=== PATIENT | male | born 1950 | race Caucasian/White ===

== ENCOUNTER 2016-12-08 20:16 | Inpatient (IN) | payer OTHER ==
[~2016-12-08] VITALS: Ht 175.3 cm; Wt 123.2 kg
--- NOTE | ~2016-12-08 | HC ---
[facility] [place] [address] CONSULTATION Name: BIN CLARKE Room #: 442-P [facility] IN ..#: [id number] Admission: 12/08/16 Attend Phys: Mohit Machuca MD Discharge: 12/13/16 Date of : 48 Report #: [id number] THIS REPORT FOR: //name// CC: Mohit BO DATE OF SERVICE: 12/09/2016 REASON FOR CONSULTATION: Congestive heart failure. HISTORY OF PRESENT ILLNESS: This is a very pleasant gentleman with a prior history of congestive heart failure, but having normalized left ventricular ejection fraction, who presented with increasing shortness of breath. The patient states that the discomfort was only a few days' duration, but upon further questioning, he had been having some gradual worsening of the symptomatology over a week or so. Over the last 3 days, he became more acutely short of breath. He stated that this was to the point where we could not breath very well and sought medical attention. He noticed is that his home O2 monitor demonstrated O2 sats in the 70s. Upon further questioning, he is not having any palpitations, any syncope or near syncope. No fever, chills or night sweats. PAST MEDICAL HISTORY: Significant for: 1. Coronary artery disease, with subsequent percutaneous revascularization. 2. Peripheral vascular disease. 3. Hypertension. 4. Vwl-ppqqwyt-cadparsfs diabetes mellitus. 5. Dyslipidemia. ALLERGIES: No known drug allergies. PAST SURGICAL HISTORY: Significant for: 1. Aortofemoral bypass grafting in 1988. 2. Intracoronary stents in 2002. 3. Bilateral carotid endarterectomies in 2007. 4. Colonoscopies. REVIEW OF SYSTEMS: Except for symptoms previously mentioned and those commensurate with comorbid states, the 10-point review of system is negative. MEDICATIONS: At home were meloxicam, glyburide, potassium chloride, prednisone, Crestor, Coreg, Lasix, aspirin, Norvasc, omeprazole, Flomax, vitamin D, Proscar, probiotic, iron, AccuNeb, sublingual nitroglycerin p.r.n. and ProAir. SOCIAL HISTORY: The patient is a former smoker. He does not consume alcohol. He does not follow a particular exercise regimen or dietary restriction. [address] [address] CONSULTATION Name: BIN CLARKE Room #: 442-P [facility] IN [facility].#: [id number] Admission: 12/08/16 Attend Phys: Mohit Machuca MD Discharge: 12/13/16 Date of : 48 Report #: [id number] PHYSICAL EXAMINATION: GENERAL: A well-developed white male, resting comfortably in no distress. VITAL SIGNS: Noted and recorded in the chart. HEENT: Normocephalic, atraumatic. Pupils are equal, round, reactive to light and accommodation. Extraocular muscles are intact. Sclerae and conjunctivae are anicteric. NECK: JVD is normal. Carotid upstrokes are bilaterally symmetrical. No bruits are heard. No thyromegaly. No lymphadenopathy. LUNGS: End-expiratory wheezes are noted bilaterally in the lungs, with bibasilar crackles present. CARDIAC EXAMINATION: Demonstrates a regular rhythm. Soft systolic murmur. No diastolic murmurs are noted. ABDOMEN: Soft, nontender, nondistended. Normal bowel sounds. EXTREMITIES: Without cyanosis, clubbing or edema. Distal pulses are intact. DTR symmetrical. NEUROLOGIC: Cranial nerves 2-12 are grossly normal and symmetrical. PSYCHIATRIC: Alert, oriented with normal affect. SKIN: Warm and dry. IMPRESSION: 1. Congestive heart failure, much improved today after diuresis, but still requires some more as he does have some orthopnea. In view of this, we will continue as we are doing. His LV function previously had been normalized and I will continue his current regimen. 2. Hypertension. We will need to monitor and make sure that was not one of the causes of his blood pressure and make sure that is at target. 3. Dyslipidemia. I discussed [place] [employer] step-1 diet with him. He voices understanding and I will get him the handout so that he can incorporate that in his daily dietary habits. 4. Peripheral vascular disease, stable. Not an issue at the present time. <ELECTRONICALLY SIGNED> By: Lance Ayala MD 12/15/16 1721 47 1158 Lance Ayala MD /nt
--- NOTE | ~2016-12-08 | EKG ---
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 : 1950 Requested By: Zane Rain Order Number: [id number] MD: Milad Payne Measurements Intervals [place] Rate: 64 P: 39 WA: 255 QRS: 26 QRSD: 150 T: 53 QT: 454 QTc: 469 Interpretive Statements Sinus rhythm Prolonged WA interval Right bundle branch block Baseline wander in lead(s) V5 Compared to ECG 09/19/2016 21:02:33 Atrial premature complex(es) no longer present Electronically Signed On 12-10-2016 9:01:27 CDT by Milad Payne [email or web address] <ELECTRONICALLY SIGNED> By: Milad Payne MD, [facility] 12/10/16 0901 26 26 Milad Payne MD, [facility] /EPI
--- NOTE | ~2016-12-08 | H ---
[facility] [place] [address] HISTORY AND PHYSICAL Name: BIN CLARKE Room #: 442-P ADM IN M.R.#: [id number] Admission: 12/08/16 Attend Phys: Mohit Machuca MD Discharge: Date of : 48 Report #: [id number] THIS REPORT FOR: //name// CC: Mohit BO DATE OF SERVICE: 12/09/2016 DATE OF ADMISSION: 12/08/2016 DATE OF SERVICE: 12/09/2016 ATTENDING PHYSICIAN: Pia Ramirez M.D. PRIMARY CARE PHYSICIAN: CAROL CHIEF COMPLAINT: Shortness of air and low oxygen saturation. HISTORY OF PRESENT ILLNESS: The patient is a 66-year-old male, who has been noticing pain, shortness of air over the last few days. He does have a history of COPD as well as CHF. He does check his oxygen on a pulse oximeter at home and it was noted to be in a 70s. He has tried some breathing treatments at home, but they did not help. He denies any significant edema or orthopnea. He has noticed a weight gain of may be, he thinks 25 pounds in the last 3 weeks. He does take Lasix daily. He says he has not missed any doses. He says he does watch his salt intake. He was previously here in June of last year for heart failure and had an echo done, which showed an EF of 55-60%. Since that time, he has been started on Coumadin. He really does not know why. He denies any DVT or PE. Denies any irregular heart rhythm. He did have a fall a few days ago in which he hit the top part of his abdomen across the back of a chair and has noticed some bruising there, but he denies any increasing abdominal distention. PAST MEDICAL HISTORY: COPD, congestive heart failure with last known EF of 55-60%, hypertension, diabetes, anemia, hyperlipidemia, coronary artery disease, chronic kidney disease stage 3, BPH, PVD. PAST SURGICAL HISTORY: Left inguinal hernia repair, CABG x 2 vessels, coronary stent x 2, bilateral carotid endarterectomy, left lower extremity stents with angioplasty, TURP, aortofemoral bypass BiPAP. ALLERGIES: None. HOME MEDICATIONS: Albuterol inhaler p.r.n., Flomax 0.4 mg at bedtime, iron 325 mg t.i.d., Imdur 30 mg daily, nitro p.r.n., carvedilol 25 mg b.i.d., amlodipine 5 mg daily, aspirin, 325 mg daily, Mobic 15 mg daily, paroxetine 60 mg at bedtime, potassium 40 mEq daily, Lasix 40 mg in the evening and 80 mg in the [address] [address] HISTORY AND PHYSICAL Name: BIN CLARKE Room #: 442-P [facility] IN M.R.#: [id number] Admission: 12/08/16 Attend Phys: Mohit Machuca MD Discharge: Date of : 48 Report #: [id number] morning, omeprazole 20 mg daily, glyburide 7.5 mg daily, vitamin D b.i.d. and finasteride 5 mg daily. SOCIAL HISTORY: The patient is an ex-smoker, having quit smoking 9 years ago. Denies any alcohol or drug use. He ambulates with a cane. He says he lives retired and currently lives with his son. FAMILY HISTORY: Significant for heart disease in his father, who from an [place] at the age of 61, his mother had hypertension, PVD with abdominal aortic aneurysm. REVIEW OF SYSTEMS: Twelve point review of systems was reviewed with the patient, otherwise negative unless stated in the HPI. PHYSICAL EXAMINATION: VITAL SIGNS: Temperature is 36.7, heart rate 69, respirations 12, blood pressure is 113/66, oxygen 90% on room air, actually on 2 liters. HEENT: PERRLA. Sclerae are nonicteric. Oral mucosa is pink and moist. NECK: Supple. No JVD noted. CARDIOVASCULAR: Normal S1, S2. No murmurs, rubs or gallops. RESPIRATORY: Breath sounds are clear bilateral upper lobes. He is diminished in both bases. Breathing is nonlabored. ABDOMEN: Obese and soft. He is nontender. He does have a large periumbilical hernia, which was soft. He has a large area of ecchymosis across the top portion of his abdomen, which is slightly tender. VASCULAR: He does have a trace bilateral lower extremity edema. Pedal pulses are 2+. NEUROLOGIC: The patient is alert. He will follow commands and is moving all extremities equally. There is no focal weakness noted. SKIN: Intact except for area of yeast like rash in his groin. LABORATORY DATA: WBC is 12.8, hemoglobin 12.7, platelets 157, sodium 140, potassium 4.2, BUN 28, creatinine 1.7, glucose is 117. LFTs are within normal limits. Troponin is 0.12. BNP 7845. Chest x-ray showed cardiomegaly with no acute findings. EKG showing sinus rhythm with a right bundle branch block. ABG showed a pH of 7.39, pCO2 of 46.4, pO2 60.7 and bicarbonate is 27.8 and lactate is 1.08. ASSESSMENT AND PLAN: 1. Yhwef-jr-gpihzhe systolic heart failure. Last known EF was normal. He has been taking his Lasix as prescribed. His BNP is quite a bit elevated from his previous admission. Chest x-ray does not show any acute fluid overload. We will continue with diuresis with IV Lasix and placed on a fluid restriction. 2. Mildly elevated troponin. He does have a history of heart disease, but this troponin bump is likely due to enzyme leakage in the setting of elevated BNP. We will continue with aspirin daily. We do need to clarify his medication list [address] [address] HISTORY AND PHYSICAL Name: BIN CLARKE ELBA Room #: [address] [place] [address] IN .R.#: [id number] Admission: 12/08/16 Attend Phys: Mohit Machuca MD Discharge: Date of : 48 Report #: [id number] [facility] as [facility] since this last hospitalization, he was started on Coumadin. We will need to check an INR level. 3. Llarw-xq-mjhnoph hypoxic respiratory failure due to chronic obstructive pulmonary disease. Continue with breathing treatments and try to wean oxygen as able, this is likely triggered. There is likely a component of congestive heart failure as well. 4. Diabetes type 2. Blood sugars are stable, continue home oral medications and add sliding scale insulin. Check blood sugars before meals and at bedtime. 5. Hypertension. Blood pressure is stable. Continue home meds. 6. Chronic kidney disease stage 3. Creatinine is stable from previous. Continue to monitor with the use of IV Lasix. 7. Peripheral vascular disease. Continue with aspirin daily. We do need to clarify if he is taking warfarin and check an INR level. 8. Deep venous thrombosis prophylaxis, place sequential compression devices. We will continue to follow the patient closely throughout the hospitalization and make changes based on clinical status. By: 0626 0904 Becki Reed, URSULA /nt
[~2016-12-08 20:16] MED LIST: ACCUNEB SO1.25 MG/1 INH; ACETAMINOPHEN325 M1 PO; ADULT LOW DOSE81 MG PO; AMLODIPINE BESY10 MG PO; AMLODIPINE PO; ASPIRIN325 PO; AZITHROMYCIN 2250 MG PO; CARVEDILOL25 MG PO; CLOTRIMAZOLE 1%30 M1 TP; COREG; CRESTOR40 MG PO; CYCLOBENZAPRINE PO; FLEXERIL PO; FLOMAX0.4 MG PO; FUROSEMIDE; GLUCOPHAGE1000 MG PO; GLUCOPHAGE500 MG PO; GLUCOTROL5 MG PO; GLYBURIDE 2.52.5 MG PO; HYTRIN 2MG CAPSU2 M1 PO; IMDUR 30 MG TAB30 M1 PO; IRON325 PO; ISORDIL10 MG PO; KLOR-CON 10 ER10 MEQ PO; KLOR-CON 1010 MEQ PO; LASIX 40 MG TAB40 M1 PO; LASIX 40 MG TAB40 M2 PO; LISINOPRIL40 MG PO; MENTHOL TOP; METFORMIN 500500 MG PO; METHYL SALICYLATE TOP; MOBIC15 MG PO; NIACIN 100MG T100 M1 PO; NIACIN 500 MG500 M1 PO; NITROGLYCERIN0.3 MG SL; NITROGLYCERIN0.4 MG SL; NORCO 5-325 TA1 EACH PO; NORVASC10 MG PO; OMEPRAZOLE 20 M20 M1 PO; PAROXETINE HCL40 MG PO; POTASSIUM20; PREDNISONE 20 M20 MG PO; PROAIR RESPICL90 MCG IH; PROBIOTIC1 EAC1 PO; PROSCAR 5MG TABL5 MG PO; TAMSULOSIN HCL0.4 M1 PO; VITAMIN D 5050000 I1 PO; VITAMIN D1000 UNI1 PO; ZPAK PO; [UNRECOGNIZED DRUG - REMARK]
[2016-12-08 20:45] LABS: HEMATOCRIT 38.6 % (42.0-52.0); HEMOGLOBIN 12.7 gm/dL (14.0-18.0); MCH 29.1 pg (26.0-34.0); RBC 4.37 mil/uL (4.50-6.00)
[2016-12-08 20:46] LABS: ABSOLUTE NEUTROPHILS 7.8 thou/uL (1.4-8.2); BASOPHILS 0.7 % (0.0-2.0); EOSINOPHILS 1.7 % (0.0-3.0); MCV 88.4 fL (80.0-100.0); MONOCYTES 10.5 % (1.0-8.0); PLATELET COUNT 157 thou/uL (150-400); POLYS 75.1 % (36.0-66.0); RDW 15.2 % (10.5-14.5); WBC 12.8 thou/uL (4.0-11.0)
[2016-12-08 20:52] LABS: CALCIUM 8.9 mg/dL (8.5-10.1); CREATININE 1.7 mg/dL (0.6-1.3); MANUAL DIFF NO; POTASSIUM 4.2 mmol/L (3.5-5.1)
[2016-12-08 21:03] LABS: ALBUMIN 3.1 g/dL (3.4-5.0); TOTAL BILIRUBIN 0.7 mg/dL (<0.1-1.0); TOTAL PROTEIN 7.1 g/dL (6.4-8.2); TROPONIN-I 0.12 ng/mL (<0.04-0.07)
[2016-12-08 21:08] LABS: ANISOCYTOSIS 1+; POLYCHROMASIA OCCASIONAL
[2016-12-08 21:21] LABS: ABG SAMPLE TYPE ARTERIAL; BE(vivo) 2.3 mmol/L (-2 to +3); HCO3 27.8 mmol/L (22.0-26.0); LACTATE 1.08 mmol/L (0.5-2.0); O2(CT) 16.3 mL/dL (15.0-23.0); O2Hb 87.3 % (92.0-98.0); PCO2 46.4 mmHg (35.0-45.0); PO2 60.7 mmHg (80.0-100.0); STICK SITE R.RADIAL; pH 7.395 (7.360-7.450); tCO2 29.2 mmol/L (24.0-30.0)
[2016-12-09 04:37] LABS: INR 2.7; PROTIME 27.7 Seconds (9.3-11.4)
[2016-12-10 05:14] LABS: HEMATOCRIT 37.8 % (42.0-52.0); HEMOGLOBIN 12.2 gm/dL (14.0-18.0); MCH 28.5 pg (26.0-34.0); MCHC 32.2 g/dL (28.0-37.0); MCV 88.4 fL (80.0-100.0); RBC 4.28 mil/uL (4.50-6.00); RDW 15.3 % (10.5-14.5); WBC 11.6 thou/uL (4.0-11.0)
[2016-12-10 05:15] LABS: INR 2.6; PROTIME 27.1 Seconds (9.3-11.4)
[2016-12-10 05:26] LABS: CALCIUM 9.1 mg/dL (8.5-10.1); CREATININE 1.7 mg/dL (0.6-1.3); MAGNESIUM 2.2 mg/dL (1.8-2.4); POTASSIUM 4.5 mmol/L (3.5-5.1)
[2016-12-11 06:01] LABS: HEMATOCRIT 37.1 % (42.0-52.0); MCH 28.8 pg (26.0-34.0); MCHC 32.4 g/dL (28.0-37.0); MCV 88.9 fL (80.0-100.0); RBC 4.18 mil/uL (4.50-6.00); RDW 15.6 % (10.5-14.5); WBC 7.7 thou/uL (4.0-11.0)
[2016-12-11 06:13] LABS: PROTIME 21.2 Seconds (9.3-11.4)
[2016-12-11 06:24] LABS: CALCIUM 8.8 mg/dL (8.5-10.1); CREATININE 1.7 mg/dL (0.6-1.3)
[2016-12-12 11:49] LABS: CALCIUM 9.1 mg/dL (8.5-10.1); CREATININE 1.5 mg/dL (0.6-1.3); POTASSIUM 4.5 mmol/L (3.5-5.1)
[2016-12-13 05:17] LABS: HEMATOCRIT 39.6 % (42.0-52.0); HEMOGLOBIN 12.9 gm/dL (14.0-18.0); MCH 28.7 pg (26.0-34.0); MCHC 32.5 g/dL (28.0-37.0); MCV 88.5 fL (80.0-100.0); RBC 4.48 mil/uL (4.50-6.00); RDW 15.5 % (10.5-14.5); WBC 7.2 thou/uL (4.0-11.0)
[2016-12-13 05:25] LABS: ANION GAP < 0 mmol/L (7-16); BUN 29 mg/dL (7-18); CHLORIDE 104 mmol/L (98-107); CO2 39 mmol/L (21-32); CREATININE 1.4 mg/dL (0.6-1.3); GLUCOSE 106 mg/dL (70-99); POTASSIUM 4.5 mmol/L (3.5-5.1); SODIUM 142 mmol/L (136-145)
== END 2016-12-13 16:51 | disposition home or self-care (01) | DRG 291 ==
LOC: ER 20:16 → EROBS 21:33 → 4S 21:33
PROVIDERS: Hospitalist; Nurse Practitioner Acute Care; Physician Assistant
PROC: 5A09357 Assistance with Respiratory Ventilation, Less than 24 Consecutive Hours, Continuous Positive Airway Pressure (ICD-10-PCS; principal; 2016-12-09)
DX: I50.23 Acute on chronic systolic (congestive) heart failure (principal); J96.21 Acute and chronic respiratory failure with hypoxia; I13.0 Hypertensive heart and chronic kidney disease with heart failure and stage 1 through stage 4 chronic kidney disease, or unspecified chronic kidney disease; E78.5 Hyperlipidemia, unspecified; I25.10 Atherosclerotic heart disease of native coronary artery without angina pectoris; E11.51 Type 2 diabetes mellitus with diabetic peripheral angiopathy without gangrene; J44.9 Chronic obstructive pulmonary disease, unspecified; E11.22 Type 2 diabetes mellitus with diabetic chronic kidney disease; I48.91 Unspecified atrial fibrillation; N18.3 Chronic kidney disease, stage 3 (moderate); N40.0 Benign prostatic hyperplasia without lower urinary tract symptoms; Z82.49 Family history of ischemic heart disease and other diseases of the circulatory system; Z95.1 Presence of aortocoronary bypass graft; Z87.891 Personal history of nicotine dependence
CPT/HCPCS: 10100

== ENCOUNTER 2017-01-21 15:45 | Inpatient (IN) | payer OTHER ==
[~2017-01-21] VITALS: Ht 175.3 cm; Wt 121.1 kg
--- NOTE | ~2017-01-21 | P ---
[facility] [place] [address] PROCEDURE REPORT Name: BIN CLARKE Room #: 238-P [facility] IN M.R.#: [id number] Admission: 01/21/17 Attend Phys: Mohit Machuca MD Discharge: Date of : 48 Report #: [id number] THIS REPORT FOR: //name// CC: Mohit BO DATE OF SERVICE: 01/21/2017 PROCEDURE: Right subclavian triple-lumen catheter insertion. INDICATION: Severe bradycardia and need for central venous access for vasopressor medications. No one to take consent from, procedure performed emergently. PROCEDURE NOTATION: After the patient was adequately intubated and had adequate response to dopamine to improve heart rate above 60, the right subclavian site was chosen. It was cleansed with 2% chlorhexidine gluconate and then using maximal barrier method including head gown, mask, gloves and full body eye sheet, a sterile field was created using sterile technique. The patient then received 5 mL 1% lidocaine local to the skin insertion site to around the clavicular area. Using an infraclavicular approach, the subclavian vein was accessed on the third attempt. A J-wire was advanced easily and the needle was removed. A small dermotomy was performed and a dilator was advanced over the J wire and the dilator was removed. The J wire did have to be retracted to some agree due to some ectopy noted on the monitor. A triple-lumen catheter was then inserted over the J wire and 19-cm J wire was removed. Line was sutured in place. Biopatch applied as was sterile dressing. All lines flushed and aspirated easily. The patient tolerated well, with no noted complications. Chest x-ray revealed no pneumothorax and triple-lumen catheter in good position. <ELECTRONICALLY SIGNED> By: Frederick Esteban MD 02/02/17 1254 2244 1258 Frederick Esteban MD /nt
--- NOTE | ~2017-01-21 | EKG ---
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
--- NOTE | ~2017-01-21 | HC ---
[facility] [place] [address] CONSULTATION Name: BIN CLARKE Room #: 238-P [facility] IN M.R.#: [id number] Admission: 01/21/17 Attend Phys: Mohit Machuca MD Discharge: Date of : 48 Report #: [id number] THIS REPORT FOR: //name// CC: Mohit BO DATE OF SERVICE: 02/05/2017 REFERRING PROVIDER: Frederick Esteban M.D. REASON FOR CONSULTATION: Respiratory failure. HISTORY OF PRESENT ILLNESS: The patient is a 66-year-old morbidly obese male who was admitted greater than 2 weeks ago with shortness of breath and atrial fibrillation. Unfortunately, the patient developed acute respiratory compromise and was subsequently intubated and transferred to the Intensive Care Unit. The patient initially was on pressor support, which was quickly weaned; however, the patient continues with making no progress as far as weaning from the ventilator and as he has been intubated for 2 weeks now, I have been asked to evaluate for possible tracheostomy and PEG tube placement for his respiratory failure. Currently, the patient is lying in his ICU bed. He does respond somewhat to stimulation and is resting comfortably in no distress. The patient's son and codmvn-pa-kjn are at the bedside today. PAST MEDICAL HISTORY: COPD, diastolic CHF, diabetes mellitus, hyperlipidemia, morbid obesity. PAST SURGICAL HISTORY: Multiple vessel CABG twice, coronary stenting, bilateral carotid endarterectomy, peripheral vascular disease, stenting. OUTPATIENT HOME MEDICATIONS: Carvedilol, Lasix, aspirin, amlodipine, omeprazole, Imdur, Flomax, vitamin D, finasteride, Paxil, albuterol. ALLERGIES: No known drug allergies. SOCIAL HISTORY: The patient does not currently utilize alcohol, tobacco or illicit drugs. FAMILY HISTORY: Reviewed and noncontributory. REVIEW OF SYSTEMS: Unobtainable secondary to his intubated status. PHYSICAL EXAMINATION: VITAL SIGNS: Temperature 98.3, pulse 80, respirations 30, blood pressure 104/76. He currently weighs 260 pounds. GENERAL: Intubated and sedated, but in no acute distress. [address] [address] CONSULTATION Name: BIN CLARKE Room #: 238-P [facility] IN .R.#: [id number] Admission: 01/21/17 Attend Phys: Mohit Machuca MD Discharge: Date of : 48 Report #: [id number] HEENT: Normocephalic, atraumatic. Pupils are equal, round, reactive to light. NECK: Supple without lymphadenopathy. Trachea midline. HEART: Regular rate and rhythm. LUNGS: Coarse breath sounds bilaterally with decreased air entry at their bases. ABDOMEN: Obese, soft, nontender, nondistended. GENITOURINARY: Normal external male genitalia. EXTREMITIES: 2+ edema to the bilateral upper extremities. NEUROLOGIC: Arouses with stimulation. Moves all extremities. PSYCHIATRIC: Unobtainable secondary to his intubated and sedated status. SKIN AND INTEGUMENT: No abnormal lesions or moles. LABORATORY AND X-RAY DATA: CBC shows white blood cell count of 10,000, hemoglobin 13.9, platelets 240,000. Creatinine 1.7. Chest x-ray yesterday showed cardiomegaly with pulmonary edema and bibasilar infiltrates. ASSESSMENT AND PLAN: This is a 66-year-old morbidly obese male with past medical history of severe cardiac disease as well as chronic obstructive pulmonary disease who is currently in respiratory failure and then intubated on mechanical ventilation for 2 weeks. I did carry out a greater than 60-minute discussion with the patient's family members with the family somewhat arousable throughout the conversation regarding proceeding forward with tracheostomy and PEG tube placement. Risks, benefits and alternatives of that were discussed in detail and all parties have agreed to proceed as outlined. I will therefore attempt to get him scheduled at the first available opportunity, which is likely tomorrow morning. I sincerely appreciate this consult. I will follow along and leave any further recommendations in the patient's chart as appropriate. <ELECTRONICALLY SIGNED> By: Robb Lux MD, FACS 02/06/17 1017 20 2346 Robb Lux MD, FACS /nt
--- NOTE | ~2017-01-21 | P ---
[facility] [place] [address] PROCEDURE REPORT Name: BIN CLARKE Room #: 238-P [facility] IN M.R.#: [id number] Admission: 01/21/17 Attend Phys: Mohit Machuca MD Discharge: Date of : 48 Report #: [id number] THIS REPORT FOR: //name// CC: Mohit BO TYPE OF REPORT: Intubation note. DATE OF PROCEDURE: 01/21/2017. PROCEDURE: Emergent intubation. INDICATIONS: Altered mental status, hypercapnic respiratory failure. PROCEDURE NOTATION: Please see critical care note by me earlier today to see indication for intubation. The patient did require 30 of etomidate to relax him to allow adequate evaluation of the airway using a MAC 4 blade, grade 1 view of the vocal cords was seen, size 8.0 endotracheal tube was advanced into the position at 22 cm at the line. This was secured in place, positive Easy Cap color change was noted and bilateral breath sounds appreciated. The patient tolerated well, otherwise no complications noted. <ELECTRONICALLY SIGNED> By: Frederick Esteban MD 02/02/17 1254 2242 1150 Frederick Esteban MD /nt
--- NOTE | ~2017-01-21 | 2DMMODE ---
[address] [address] 2 D/M-MODE ECHOCARDIOGRAM Name: BIN CLARKE Room #: 238-P ADM IN M.R.#: [id number] Admission: 01/21/17 Attend Phys: Mohit Machuca MD Discharge: Date of : 48 Date of Service: 01/22/17 1351 Report #: [id number] THIS REPORT FOR: //name// APPROVED REPORT Study performed: 01/22/2017 12:16:44 EXAM: Comprehensive 2D, Doppler, and color-flow Echocardiogram Patient Location: ICU Room #: 238 Blood Pressure: 128/71 mmHg HR: 61 bpm Other Information Study Quality: Fair Indications Congestive Heart Failure COPD Atrial Fibrillation CAD Hypertension/HDD Echo Enhancing Agent Indication: Endocardial border delineation Agent/Amount Used: Definity 2 cc 2D Dimensions IVC: 26.00 mm Aortic Valve AoV Peak Min.: 1.21 m/s AO Peak Gr.: 5.90 mmHg LVOT Max P.43 mmHg LVOT Max V: 1.16 m/s Mitral Valve MV Decel. Time: 253.91 ms MV E Max Min.: 1.02 m/s Pulmonary Valve PV Peak Min.: 1.33 m/s PV Peak Gr.: 7.[address] [place] [address] 2 D/M-MODE ECHOCARDIOGRAM Name: BIN CLARKE Room #: 238-P ADM IN .R.#: [id number] Admission: 01/21/17 Attend Phys: Mohit Machuca MD Discharge: Date of : 48 Date of Service: 01/22/17 1351 Report #: [id number] Tricuspid Valve RAP Estimate: 15.00 mmHg Left Ventricle The left ventricle is normal size. There is normal left ventricular wall thickness. The left ventricular systolic function is normal. The left ventricular ejection fraction is within the normal range. LVEF is 60-65%. Diastolic function cannot be accurately assessed. Right Ventricle Right ventricle is dilated. The right ventricular systolic function is normal. Atria Left atrium is dilated. Right atrium is dilated. Aortic Valve The aortic valve is normal in structure. No aortic regurgitation is present. There is no aortic valvular stenosis. Mitral Valve The mitral valve is normal in structure. There is no mitral valve regurgitation noted. No evidence of mitral valve stenosis. Tricuspid Valve The tricuspid valve is normal in structure. There is no tricuspid valve regurgitation noted. Pulmonic Valve Pulmonic valve is not well visualized. Great Vessels The aortic root is normal in size. The inferior vena cava is dilated with no inspiratory collapse. Pericardium There is no pericardial effusion. <Conclusion> The left ventricle is normal size. LVEF is 60-65%. Right ventricle is dilated. Left atrium is dilated. Right atrium is dilated. The aortic valve is normal in structure. [facility] [address] [place] [address] 2 D/M-MODE ECHOCARDIOGRAM Name: BIN CLARKE Room #: 238-P ADM IN M.R.#: [id number] Admission: 01/21/17 Attend Phys: Mohit Machuca MD Discharge: Date of : 48 Date of Service: 01/22/17 1351 Report #: [id number] The mitral valve is normal in structure. The tricuspid valve is normal in structure. <ELECTRONICALLY SIGNED> By: Lance Ayala MD 01/22/17 1351 1351 50 Lance Ayala MD /INF
--- NOTE | ~2017-01-21 | EKG ---
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
--- NOTE | ~2017-01-21 | HC ---
[facility] [place] [address] CONSULTATION Name: BIN CLARKE Room #: 238-P ADM IN M.R.#: [id number] Admission: 01/21/17 Attend Phys: Mohit Machuca MD Discharge: Date of : 48 Report #: [id number] THIS REPORT FOR: //name// CC: Mike Duran MD [facility] Mohit BO DATE OF SERVICE: 01/21/2017 REFERRING PROVIDER: Mohit Machuca MD REASON FOR CONSULTATION: Respiratory failure and altered mental status. HISTORY OF PRESENT ILLNESS: Our group was asked to see the patient emergently as a stat consultation while in the critical care step down unit, responded within 5 minutes at the patient's bedside. Apparently, the patient presented to the emergency department and had been admitted recently on more than one occasion for problems with congestive heart failure and presented at this time with complaints of apparent increasing shortness of breath, apparently was somewhat distressed in the emergency department, but improved. Also noted to be bradycardic in the emergency department with atrial fibrillation. The patient was subsequently admitted to the step down floor, however, almost immediately upon presentation became very confused, very short of breath and bradycardic. arrived at the bedside, the patient was poorly responsive, grunting, noted to be hypercapnic on recent arterial blood gas with heart rates in the 30s-40s. The patient was in process of transferring to the ICU. After transfer to the ICU, patient was emergently intubated by myself, started on dobutamine, also received 0.5 mg of atropine. The patient had responded thus far, is now on mechanical ventilatory support. The patient unable to give any further history. ALLERGIES: None known. OUTPATIENT MEDICATIONS: Include carvedilol, Lasix, aspirin, amlodipine, omeprazole, Imdur, tamsulosin, vitamin D, finasteride, Paxil, albuterol and unclear any other medications. PAST MEDICAL HISTORY: 1. History of COPD, severity not quantified. 2. History of what sounds like diastolic congestive heart failure. 3. Diabetes mellitus type 2. 4. Hyperlipidemia. PAST SURGICAL HISTORY: Includes coronary bypass grafting twice, coronary stents, bilateral carotid endarterectomy, peripheral vascular disease, stenting. [address] [address] CONSULTATION Name: BIN CLARKE Room #: 238-[facility] IN ..#: [id number] Admission: 01/21/17 Attend Phys: Mohit Machuca MD Discharge: Date of : 48 Report #: [id number] SOCIAL HISTORY: Not obtainable due to his current status, currently an ex-smoker, quitting 9 years ago. FAMILY HISTORY: Unobtainable due to his current status. REVIEW OF SYSTEMS: Otherwise, unobtainable due to his current neurologic and respiratory status. PHYSICAL EXAMINATION: VITAL SIGNS: Afebrile, pulse 50 and irregular, respiratory rate 20 following mechanical ventilatory breaths, blood pressure 100/48. GENERAL: This is an obese elderly male, unresponsive and when responsive is somewhat belligerent and inappropriate. ENT: Significant dental loss, 8.[address]. NECK: Supple. No lymphadenopathy, but thick. LUNGS: Diminished, but relatively clear. No significant wheezes noted. CARDIOVASCULAR: Heart was bradycardic and irregular. ABDOMEN: Obese, large ventral hernia noted. Bowel sounds active. EXTREMITIES: Revealed 1+ edema and diminished pulses in the periphery with some mild cyanosis of the lower extremity distally. LABORATORY DATA: Arterial blood gas on assist control, tidal volume 500, FiO2 100%, PEEP of 5, respiratory rate 16 revealed pH 7.29, pCO2 of 75, pO2 of 72, bicarbonate 35. Lactate was 1. Chest x-ray revealed severe cardiomegaly, severely widened mediastinum. There was noted significant tracheal deviation, not reported on the radiology report for chest x-ray, but significant lateral deviation of the trachea to the right at the thoracic inlet that deviated back to midline after this initial move. Rest of the lung cook appeared relatively clear with only mild pulmonary vascular congestion. INR was 1.9. White blood cell count 7000, hemoglobin 12, hematocrit 38, platelet count 146. Sodium 145, potassium 4.3, chloride 104, bicarbonate 36, BUN 22, creatinine 1.5, glucose 56. ProBNP is 5609. Troponin 0.08. IMPRESSION: 1. Acute respiratory failure. I am concerned about the deviated trachea noted on x-ray as a potential etiology; however, he remains hypoxemic greater than exam or x-ray findings, so we are concerned about pulmonary embolism in this case. 2. Significant bradycardia, possibly sick sinus syndrome. 3. Deviated trachea noted on chest x-ray with mediastinal widening concerning for mediastinal mass or aortic aneurysm. 4. History of diastolic congestive heart failure. 5. Hypercapnic respiratory failure. 6. Altered mental status, likely consequence of this entire milieu. 7. Atrial fibrillation. [facility] [address] [place] [address] CONSULTATION Name: BIN CLARKE Room #: 238-P ADM IN M.[place].#: [id number] Admission: 01/21/17 Attend Phys: Mohit Machuca MD Discharge: Date of : 48 Report #: [id number] SUGGEST: 1. CT of the chest, PE protocol to further evaluate. 2. Continue hydration given some renal insufficiency noted on arterial blood gas. 3. Would cover for acute infectious process while awaiting cultures. Given recent hospital admission, would cover for hospital-acquired organisms; however, doubt infectious process at this time. 4. Central venous catheter placement has been noted. 5. Continue ICU care. See orders for further recommendations. Total critical care time, not including procedures 60 minutes. Case discussed with nursing as well as respiratory therapy at the bedside. No family immediately available. <ELECTRONICALLY SIGNED> By: Frederick Esteban MD 02/02/17 1254 [id number] Frederick Esteban MD /nt
--- NOTE | ~2017-01-21 | O ---
[facility] [address] OPERATIVE REPORT Name: TRICIABIN ARREOLA Room #: 238-P [facility] IN ..#: [id number] Admission: 01/21/17 Attend Phys: Mohit Machuca MD Discharge: 02/09/17 Date of : 48 Report #: [id number] THIS REPORT FOR: //name// CC: Mohit BO DATE OF SERVICE: 02/06/2017 PREOPERATIVE DIAGNOSES: 1. Prolonged respiratory failure with mechanical ventilation. 2. Chronic obstructive pulmonary disease. 3. Diastolic congestive heart failure. 4. Diabetes mellitus. 5. Hyperlipidemia. 6. Morbid obesity. 7. Bilateral carotid endarterectomies. POSTOPERATIVE DIAGNOSES: 1. Prolonged respiratory failure with mechanical ventilation. 2. Chronic obstructive pulmonary disease. 3. Diastolic congestive heart failure. 4. Diabetes mellitus. 5. Hyperlipidemia. 6. Morbid obesity. 7. Bilateral carotid endarterectomies. 8. Significant scarring in the anterior neck from his bilateral carotid endarterectomies. PROCEDURES PERFORMED: 1. Tracheostomy placement with an 8 Shiley extra long cuffed tracheostomy appliance. 2. Esophagogastroduodenoscopy (EGD) with placement of a percutaneous endoscopic gastrostomy (PEG) tube. 3. Modifier 22 procedure for extreme difficulty of the tracheostomy secondary to the patient's morbid obesity, significantly thickened neck with marked scarring in the anterior neck secondary to his bilateral carotid endarterectomies causing distortion of the major vessels in the neck and requiring an school health assistant surgeon for adequate exposure. SURGEON: Robb Lux M.D. OUTPATIENT PHARMACY MANAGER: Rafa Rojas M.D. ANESTHESIA: General endotracheal anesthesia. ESTIMATED BLOOD LOSS: Minimal (less than 10 mL). [facility] [address] [place] [address] OPERATIVE REPORT Name: BIN CLARKE Room #: 238-P [facility] IN ..#: [id number] Admission: 01/21/17 Attend Phys: Mohit Machuca MD Discharge: 02/09/17 Date of : 48 Report #: [id number] COMPLICATIONS: None appreciated. SPECIMENS: None. INDICATIONS: The patient is a 66-year-old morbidly obese male who was admitted greater than 2 weeks ago with shortness of breath and atrial fibrillation where he was found to have acute respiratory compromise that subsequently necessitated intubation and Intensive Care Unit management. The patient has been maintained on mechanical ventilation with no ability to wean from the ventilator thus far and as he has been intubated for 2 weeks' time, indication was for tracheostomy placement. In addition, the patient does have encephalopathy and inability to take p.o. intake at this juncture and as such, indication was also for PEG tube placement. DESCRIPTION OF PROCEDURE: After explaining the risks, benefits and alternatives of the procedure as well as his family in great detail and obtaining consent, the patient was brought to the operating room, placed supine on the operating room table. After conducting a thorough timeout procedure verifying correct patient and procedure, the patient was given general endotracheal anesthesia via his indwelling oral tracheal tube. I began the procedure by performing the EGD with PEG placement first. The [employer] upper endoscope was used to intubate the oropharynx. This was traversed down into the esophagus and into the gastric lumen where the pylorus was identified and intubated. The scope was advanced to the second portion of duodenum where slow careful withdrawal of the EGD scope showed no evidence of duodenitis, gastritis, esophagitis, mass lesions or ulcerations. A retroflexion view of the scope showed a small hiatal hernia. The scope was straightened out in the gastric lumen where the stomach was fully insufflated. The patient was placed in reverse Trendelenburg position to allow gravity to pull the organs inferiorly and ensure that the transverse colon would not be in the way. I then was able to easily identify transillumination through the anterior abdominal wall in the left upper quadrant where manual external ballottement was performed to confirm placement. This area was then prepped and draped in the standard surgical sterile fashion. A 5 mL of 1% plain lidocaine were used to anesthetize the skin at this location. A #11 bladed scalpel was used to create a 7-mm transverse skin incision at this location. A loop snare was placed down the EGD scope and the needle-sheath apparatus was placed through the incision site in the abdominal wall where it was directed through the anterior gastric wall under direct vision. The needle was removed and a wire was placed down the sheath, which was then grasped with the loop snare. The entire EGD scope and snare were then pulled out the mouth, bringing the wire through with it. I then utilized a 24-Maltese pull-type PEG tube, which was attached to the wire and was then pulled down the oropharynx and through the anterior gastric and anterior abdominal man. The scope was placed back in the stomach where the internal flange was seen to reside where it was snugged, but not tied to the anterior gastric wall. This measured 4 cm at the skin level [address] [address] OPERATIVE REPORT Name: BIN CLARKE Room #: 238-P [facility] IN .[place].#: [id number] Admission: 01/21/17 Attend Phys: Mohit Machuca MD Discharge: 02/09/17 Date of : 48 Report #: [id number] externally. The stomach was fully desufflated. The scope was removed and passed off the field. I then placed the external flange, clamp and adaptor in standard fashion. We then turned our attention to the tracheostomy portion of the procedure. Appropriate shoulder roll was placed behind the patient's scapula with his head in slight hyperextension. This still did not provide adequate exposure due to his significant obesity, especially in the upper chest and neck region. I then utilized tape to tape his chest inferiorly to the bed and created a sling of tape around his chins to hold them in a cranial direction, displayed the anterior neck out somewhat and we were able to prep and drape in standard surgical sterile fashion. A 5 mL of 0.5% Marcaine with epinephrine was then used to anesthetize the anterior neck midway between what felt like the cricothyroid membrane and the suprasternal notch. A #15 bladed scalpel was used to create a 1.5 cm transverse skin incision at this location. Electrocautery was used to carry this down through skin and subcutaneous tissues through the platysma muscle where the strap muscles were identified. At this juncture, the patient's right carotid artery and vein were seen to overly the right strap muscle complex. Careful tedious dissection was undertaken down the midline to mobilize the strap muscles laterally and in doing so, we then saw additional scar on the left side from the prior left carotid endarterectomy. Ultimately, we were able to retract these laterally with significant tedious dissection and exposure that could only be attained with qualified school health assistant help from Dr. Rojas. This allowed us to expose the isthmus of the thyroid, which was then transected down the midline with electrocautery slowly to ensure hemostasis. This brought us to the anterior trachea where I proceeded to mobilize the thyroid off the trachea on both lateral aspects and cricothyroid membrane was identified. The second tracheal ring was identified and the trachea itself dove posteriorly due to his obesity and tracheostomy hook was then utilized at cricothyroid membrane to elevate the trachea anteriorly and flatten it out. At this juncture, the anesthesiologist let the balloon down on the cuff of the endotracheal tube and I proceeded to create an H type incision in the second tracheal ring with #11 bladed scalpel. Each of the H type flaps were then cut off with curved Leigh scissors and removed in total. Tracheal corrugator supervisor device was then readied and anesthesia withdrew the endotracheal tube until the tip of the endotracheal tube was just cephalad to the tracheotomy. The tracheal corrugator supervisor device was placed in the tracheotomy and dilated appropriately. An 8 Shiley extra long cuffed tracheostomy appliance was then utilized to place this through the tracheotomy with some difficulty due to the obesity in the angle of the trachea. Ultimately, I was able to slide this through the tracheotomy where the cuff was inflated. The inner cannula was placed and the tracheostomy was attached to the mechanical ventilator showing immediate return of end-tidal CO2 with good tidal volumes. The tracheostomy hook was carefully removed, so as not to puncture the balloon of the tracheostomy and all retractors were removed with complete hemostasis at this juncture. I then proceeded to anchor the tracheostomy appliance into place using 2-0 nylon in standard fashion as well as a foam tracheostomy strap to hold [address] [address] OPERATIVE REPORT Name: BNI CLARKE Room #: 238-P [facility] IN M.R.#: [id number] Admission: 01/21/17 Attend Phys: Mohit Machuca MD Discharge: 02/09/17 Date of : 48 Report #: [id number] securely. At the end of the procedure, all instrument, needle and sponge counts were correct. The patient tolerated the procedure without incident, was continued to be ventilated through his newly placed tracheostomy where he was transitioned back to the Intensive Care Unit in stable condition with no apparent complications. <ELECTRONICALLY SIGNED> By: Robb Lux MD, FACS 02/11/17 0713 [id number] Robb Lux MD, FACS /nt
[2017-01-21 15:47] VITALS: BP 98/50
[2017-01-21 16:21] LABS: ABG SAMPLE TYPE ARTERIAL; HCO3 38.5 mmol/L (22.0-26.0); LACTATE 1.17 mmol/L (0.5-2.0); O2(CT) 14.9 mL/dL (15.0-23.0); PO2 56.1 mmHg (80.0-100.0); pH 7.341 (7.360-7.450); sO2 86.2 % (92.0-98.0); tCO2 40.7 mmol/L (24.0-30.0)
[2017-01-21 16:22] LABS: PCO2 72.8 mmHg (35.0-45.0); STICK SITE R.RADIAL
[2017-01-21 16:49] LABS: HEMATOCRIT 38.2 % (42.0-52.0); HEMOGLOBIN 12.3 gm/dL (14.0-18.0); MCH 29.4 pg (26.0-34.0); MCHC 32.1 g/dL (28.0-37.0); MCV 91.6 fL (80.0-100.0); PLATELET COUNT 146 thou/uL (150-400); RBC 4.17 mil/uL (4.50-6.00); RDW 17.2 % (10.5-14.5); WBC 6.5 thou/uL (4.0-11.0)
[2017-01-21 16:53] LABS: MANUAL DIFF YES
[2017-01-21 17:00] LABS: CALCIUM 8.8 mg/dL (8.5-10.1); CREATININE 1.5 mg/dL (0.7-1.3); POTASSIUM 4.3 mmol/L (3.5-5.1)
[2017-01-21 17:19] LABS: ALBUMIN 3.1 g/dL (3.4-5.0); CK-MB MASS 2.9 ng/mL (<0.5-3.6); MAGNESIUM 2.1 mg/dL (1.8-2.4); TOTAL BILIRUBIN 0.7 mg/dL (<0.1-1.0); TROPONIN-I 0.08 ng/mL (<0.04-0.07)
[2017-01-21 17:43] LABS: APTT 29.6 Seconds (24.5-32.8); INR 1.9
[2017-01-21 17:55] LABS: ABSOLUTE NEUTROPHILS 4.7 thou/uL (1.4-8.2); TOTAL CELL COUNT 100
[2017-01-21 17:56] LABS: ANISOCYTOSIS 2+; HYPOCHROMASIA 3+; MICROCYTES 2+
[2017-01-21 19:21] LABS: ABG SAMPLE TYPE ARTERIAL; BE(vivo) 8.4 mmol/L (-2 to +3); HCO3 36.3 mmol/L (22.0-26.0); O2(CT) 16.1 mL/dL (15.0-23.0); O2Hb 87.2 % (92.0-98.0); PCO2 66.8 mmHg (35.0-45.0); PO2 61.9 mmHg (80.0-100.0); pH 7.353 (7.360-7.450); sO2 89.9 % (92.0-98.0); tCO2 38.4 mmol/L (24.0-30.0)
[2017-01-21 19:22] LABS: STICK SITE R.RADIAL
[2017-01-21 21:16] LABS: ABG SAMPLE TYPE ARTERIAL; LACTATE 0.99 mmol/L (0.5-2.0); O2(CT) 16.2 mL/dL (15.0-23.0); O2Hb 89.9 % (92.0-98.0); PO2 72.4 mmHg (80.0-100.0); sO2 92.1 % (92.0-98.0); tCO2 37.3 mmol/L (24.0-30.0)
[2017-01-21 21:17] LABS: PCO2 75.2 mmHg (35.0-45.0); STICK SITE L.RADIAL; TIDAL VOLUME 500 ml; pH 7.286 (7.360-7.450)
[2017-01-21 21:31] LABS: URINE BILIRUBIN NEGATIVE (Negative); URINE BLOOD NEGATIVE (Negative); URINE COLOR YELLOW; URINE GLUCOSE-RANDOM* NEGATIVE (Negative); URINE KETONES NEGATIVE (Negative); URINE LEUKOCYTES-REFLEX NEGATIVE (Negative); URINE PROTEIN (DIPSTICK) NEGATIVE (Negative); URINE UROBILINOGEN 0.2 E.U./dl (0.2-1.0)
[2017-01-21 21:38] LABS: AMP/METHAMP Negative (Negative); BARBITURATES Negative (Negative); BENZODIAZEPINES Negative (Negative); COCAINE Negative (Negative); METHADONE Negative (Negative); OPIATES Negative (Negative); PCP Negative (Negative); THC Negative (Negative)
[2017-01-22] VITALS (30 sets, daily range): BP systolic 89–173; BP diastolic 47–94
[2017-01-22 06:18] LABS: HEMATOCRIT 37.5 % (42.0-52.0); MCH 29.2 pg (26.0-34.0); MCHC 32.1 g/dL (28.0-37.0); MCV 90.9 fL (80.0-100.0); RBC 4.12 mil/uL (4.50-6.00); RDW 16.8 % (10.5-14.5); WBC 6.7 thou/uL (4.0-11.0)
[2017-01-22 06:42] LABS: CALCIUM 8.5 mg/dL (8.5-10.1); CREATININE 1.5 mg/dL (0.7-1.3); TROPONIN-I 0.08 ng/mL (<0.04-0.07)
[2017-01-22 09:12] LABS: ABG COMMENT A/C; ABG SAMPLE TYPE ARTERIAL; BE(vivo) 5.7 mmol/L (-2 to +3); HCO3 31.4 mmol/L (22.0-26.0); LACTATE 1.22 mmol/L (0.5-2.0); O2(CT) 17.3 mL/dL (15.0-23.0); O2Hb 94.3 % (92.0-98.0); PCO2 49.8 mmHg (35.0-45.0); PO2 79.9 mmHg (80.0-100.0); STICK SITE R.RADIAL; TIDAL VOLUME 450 ml; pH 7.417 (7.360-7.450); sO2 95.8 % (92.0-98.0); tCO2 32.9 mmol/L (24.0-30.0)
[2017-01-23] VITALS (24 sets, daily range): BP systolic 111–157; BP diastolic 61–97
[2017-01-23 04:56] LABS: ABG SAMPLE TYPE ARTERIAL; BE(vivo) 9.3 mmol/L (-2 to +3); FIO2 60 %; HCO3 35.6 mmol/L (22.0-26.0); LACTATE 1.38 mmol/L (0.5-2.0); O2(CT) 17.9 mL/dL (15.0-23.0); O2Hb 93.7 % (92.0-98.0); PCO2 55.2 mmHg (35.0-45.0); PO2 74.2 mmHg (80.0-100.0); STICK SITE L.RADIAL; TIDAL VOLUME 450 ml; pH 7.427 (7.360-7.450); tCO2 37.3 mmol/L (24.0-30.0)
[2017-01-23 10:21] LABS: ABG SAMPLE TYPE ARTERIAL; BE(vivo) 10.2 mmol/L (-2 to +3); HCO3 36.2 mmol/L (22.0-26.0); LACTATE 1.19 mmol/L (0.5-2.0); O2(CT) 17.5 mL/dL (15.0-23.0); O2Hb 90.1 % (92.0-98.0); PCO2 53.7 mmHg (35.0-45.0); PO2 62.8 mmHg (80.0-100.0); STICK SITE L.RADIAL; TIDAL VOLUME 450 ml; pH 7.446 (7.360-7.450); sO2 92.5 % (92.0-98.0); tCO2 37.8 mmol/L (24.0-30.0)
[2017-01-24] VITALS (32 sets, daily range): BP systolic 84–149; BP diastolic 54–89
[2017-01-24 03:44] LABS: HEMATOCRIT 39.2 % (42.0-52.0); HEMOGLOBIN 12.7 gm/dL (14.0-18.0); MCH 29.1 pg (26.0-34.0); MCHC 32.5 g/dL (28.0-37.0); MCV 89.6 fL (80.0-100.0); RBC 4.37 mil/uL (4.50-6.00); RDW 16.6 % (10.5-14.5); WBC 8.2 thou/uL (4.0-11.0)
[2017-01-24 03:54] LABS: CALCIUM 8.7 mg/dL (8.5-10.1); POTASSIUM 3.4 mmol/L (3.5-5.1)
[2017-01-24 05:32] LABS: ABG SAMPLE TYPE ARTERIAL; BE(vivo) 11.4 mmol/L (-2 to +3); HCO3 37.6 mmol/L (22.0-26.0); LACTATE 1.15 mmol/L (0.5-2.0); O2(CT) 17.5 mL/dL (15.0-23.0); O2Hb 90.8 % (92.0-98.0); PCO2 55.5 mmHg (35.0-45.0); PO2 64.4 mmHg (80.0-100.0); STICK SITE L.RADIAL; TIDAL VOLUME 450 ml; pH 7.449 (7.360-7.450); tCO2 39.3 mmol/L (24.0-30.0)
[2017-01-25] VITALS (28 sets, daily range): BP systolic 89–145; BP diastolic 48–88
[2017-01-25 05:15] LABS: HEMOGLOBIN 12.4 gm/dL (14.0-18.0); MCH 29.1 pg (26.0-34.0); MCHC 32.5 g/dL (28.0-37.0); MCV 89.4 fL (80.0-100.0); RBC 4.26 mil/uL (4.50-6.00); RDW 16.3 % (10.5-14.5); WBC 6.8 thou/uL (4.0-11.0)
[2017-01-25 05:24] LABS: CALCIUM 8.9 mg/dL (8.5-10.1); CREATININE 1.1 mg/dL (0.7-1.3); POTASSIUM 3.2 mmol/L (3.5-5.1)
[2017-01-26] VITALS (36 sets, daily range): BP systolic 91–118; BP diastolic 50–76
[2017-01-26 03:59] LABS: HEMATOCRIT 36.6 % (42.0-52.0); HEMOGLOBIN 11.8 gm/dL (14.0-18.0); MCH 28.7 pg (26.0-34.0); MCHC 32.2 g/dL (28.0-37.0); MCV 89.2 fL (80.0-100.0); RBC 4.1 mil/uL (4.50-6.00); RDW 16.2 % (10.5-14.5); WBC 7.2 thou/uL (4.0-11.0)
[2017-01-26 04:18] LABS: CALCIUM 8.4 mg/dL (8.5-10.1); CREATININE 1.4 mg/dL (0.7-1.3); POTASSIUM 3.5 mmol/L (3.5-5.1)
[2017-01-27] VITALS (53 sets, daily range): BP systolic 11–150; BP diastolic 52–89
[2017-01-27 04:18] LABS: HEMATOCRIT 37.8 % (42.0-52.0); HEMOGLOBIN 12.3 gm/dL (14.0-18.0); MCH 28.9 pg (26.0-34.0); MCHC 32.5 g/dL (28.0-37.0); MCV 88.9 fL (80.0-100.0); RBC 4.25 mil/uL (4.50-6.00); RDW 16.4 % (10.5-14.5)
[2017-01-27 04:20] LABS: CALCIUM 8.9 mg/dL (8.5-10.1); CREATININE 1.3 mg/dL (0.7-1.3); POTASSIUM 3.7 mmol/L (3.5-5.1)
[2017-01-28] VITALS (131 sets, daily range): BP systolic 81–140; BP diastolic 49–84
[2017-01-28 08:55] LABS: HEMATOCRIT 39.1 % (42.0-52.0); HEMOGLOBIN 12.6 gm/dL (14.0-18.0); MCH 28.6 pg (26.0-34.0); MCHC 32.3 g/dL (28.0-37.0); MCV 88.5 fL (80.0-100.0); RBC 4.42 mil/uL (4.50-6.00); RDW 16.2 % (10.5-14.5); WBC 8.5 thou/uL (4.0-11.0)
[2017-01-28 09:19] LABS: CALCIUM 9.6 mg/dL (8.5-10.1); CREATININE 1.2 mg/dL (0.7-1.3); MAGNESIUM 2.2 mg/dL (1.8-2.4); POTASSIUM 3.5 mmol/L (3.5-5.1)
[2017-01-29] VITALS (98 sets, daily range): BP systolic 87–166; BP diastolic 54–102
[2017-01-29 05:19] LABS: HEMOGLOBIN 12.4 gm/dL (14.0-18.0); MCH 28.3 pg (26.0-34.0); MCHC 31.7 g/dL (28.0-37.0); MCV 89.2 fL (80.0-100.0); RBC 4.36 mil/uL (4.50-6.00); RDW 16.6 % (10.5-14.5); WBC 8.4 thou/uL (4.0-11.0)
[2017-01-29 05:25] LABS: CALCIUM 9.6 mg/dL (8.5-10.1); CREATININE 1.3 mg/dL (0.7-1.3); POTASSIUM 3.3 mmol/L (3.5-5.1)
[2017-01-30] VITALS (62 sets, daily range): BP systolic 84–147; BP diastolic 53–90
[2017-01-30 05:25] LABS: HEMATOCRIT 39.9 % (42.0-52.0); HEMOGLOBIN 12.8 gm/dL (14.0-18.0); MCH 28.2 pg (26.0-34.0); MCHC 32.1 g/dL (28.0-37.0); RBC 4.53 mil/uL (4.50-6.00); RDW 16.4 % (10.5-14.5)
[2017-01-30 05:29] LABS: ABG SAMPLE TYPE ARTERIAL; BE(vivo) 8.2 mmol/L (-2 to +3); LACTATE 0.99 mmol/L (0.5-2.0); O2(CT) 17.2 mL/dL (15.0-23.0); O2Hb 90.4 % (92.0-98.0); PCO2 51.8 mmHg (35.0-45.0); PO2 63.2 mmHg (80.0-100.0); pH 7.435 (7.360-7.450); sO2 92.5 % (92.0-98.0); tCO2 35.6 mmol/L (24.0-30.0)
[2017-01-30 05:30] LABS: STICK SITE L.RADIAL; TIDAL VOLUME 450 ml
[2017-01-30 05:38] LABS: CALCIUM 9.6 mg/dL (8.5-10.1); CREATININE 1.2 mg/dL (0.7-1.3); POTASSIUM 3.4 mmol/L (3.5-5.1)
[2017-01-31] VITALS (41 sets, daily range): BP systolic 95–145; BP diastolic 54–89
[2017-01-31 06:23] LABS: HEMATOCRIT 40.9 % (42.0-52.0); HEMOGLOBIN 13.3 gm/dL (14.0-18.0); MCH 28.8 pg (26.0-34.0); MCHC 32.6 g/dL (28.0-37.0); MCV 88.5 fL (80.0-100.0); RBC 4.62 mil/uL (4.50-6.00); RDW 16.4 % (10.5-14.5); WBC 7.3 thou/uL (4.0-11.0)
[2017-01-31 06:31] LABS: CREATININE 1.3 mg/dL (0.7-1.3); POTASSIUM 3.1 mmol/L (3.5-5.1)
[2017-01-31 06:36] LABS: CALCIUM 9.6 mg/dL (8.5-10.1)
[2017-02-01] VITALS (34 sets, daily range): BP systolic 73–164; BP diastolic 51–94
[2017-02-01 05:03] LABS: HEMATOCRIT 41.1 % (42.0-52.0); MCHC 31.7 g/dL (28.0-37.0); MCV 88.4 fL (80.0-100.0); RBC 4.64 mil/uL (4.50-6.00); RDW 16.3 % (10.5-14.5); WBC 7.7 thou/uL (4.0-11.0)
[2017-02-01 05:24] LABS: CALCIUM 9.5 mg/dL (8.5-10.1); CREATININE 1.3 mg/dL (0.7-1.3); POTASSIUM 3.1 mmol/L (3.5-5.1)
[2017-02-02] VITALS (38 sets, daily range): BP systolic 81–161; BP diastolic 54–95
[2017-02-02 04:52] LABS: ABSOLUTE NEUTROPHILS 5.9 thou/uL (1.4-8.2); BASOPHILS 1.3 % (0.0-2.0); EOSINOPHILS 3.2 % (0.0-3.0); HEMATOCRIT 42.5 % (42.0-52.0); HEMOGLOBIN 13.9 gm/dL (14.0-18.0); INR 1.1; LYMPHOCYTES 13.4 % (24.0-44.0); MCH 28.4 pg (26.0-34.0); MCHC 32.7 g/dL (28.0-37.0); MCV 86.9 fL (80.0-100.0); MONOCYTES 9.7 % (1.0-8.0); PLATELET COUNT 240 thou/uL (150-400); POLYS 72.4 % (36.0-66.0); PROTIME 11.2 Seconds (9.3-11.4); RBC 4.89 mil/uL (4.50-6.00); RDW 16.2 % (10.5-14.5); WBC 8.1 thou/uL (4.0-11.0)
[2017-02-02 05:11] LABS: ALBUMIN 2.4 g/dL (3.4-5.0); CALCIUM 9.5 mg/dL (8.5-10.1); CREATININE 1.2 mg/dL (0.7-1.3); POTASSIUM 3.3 mmol/L (3.5-5.1); TOTAL BILIRUBIN 0.4 mg/dL (<0.1-1.0); TOTAL PROTEIN 6.9 g/dL (6.4-8.2)
[2017-02-02 05:13] LABS: ABG SAMPLE TYPE ARTERIAL; BE(vivo) 7.5 mmol/L (-2 to +3); HCO3 32.8 mmol/L (22.0-26.0); O2(CT) 19.1 mL/dL (15.0-23.0); O2Hb 91.8 % (92.0-98.0); PCO2 48.1 mmHg (35.0-45.0); PO2 65.2 mmHg (80.0-100.0); pH 7.451 (7.360-7.450); sO2 93.5 % (92.0-98.0); tCO2 34.2 mmol/L (24.0-30.0)
[2017-02-02 05:14] LABS: FIO2 50 %; STICK SITE R.RADIAL; TIDAL VOLUME 450 ml
[2017-02-02 05:26] LABS: MANUAL DIFF NO
[2017-02-03] VITALS (50 sets, daily range): BP systolic 71–121; BP diastolic 48–88
[2017-02-04] VITALS (120 sets, daily range): BP systolic 61–147; BP diastolic 41–91
[2017-02-04 08:52] LABS: ABSOLUTE NEUTROPHILS 6.8 thou/uL (1.4-8.2); BASOPHILS 0.9 % (0.0-2.0); HEMATOCRIT 45.6 % (42.0-52.0); HEMOGLOBIN 14.7 gm/dL (14.0-18.0); LYMPHOCYTES 12.7 % (24.0-44.0); MCHC 32.3 g/dL (28.0-37.0); MCV 86.6 fL (80.0-100.0); MONOCYTES 10.2 % (1.0-8.0); PLATELET COUNT 234 thou/uL (150-400); POLYS 75.2 % (36.0-66.0); RBC 5.27 mil/uL (4.50-6.00); RDW 16.5 % (10.5-14.5); WBC 9.1 thou/uL (4.0-11.0)
[2017-02-04 08:53] LABS: MANUAL DIFF NO
[2017-02-04 08:55] LABS: CALCIUM 9.6 mg/dL (8.5-10.1); CREATININE 1.6 mg/dL (0.7-1.3); POTASSIUM 3.1 mmol/L (3.5-5.1)
[2017-02-05] VITALS (95 sets, daily range): BP systolic 72–129; BP diastolic 57–97
[2017-02-05 05:28] LABS: HEMATOCRIT 42.4 % (42.0-52.0); HEMOGLOBIN 13.9 gm/dL (14.0-18.0); MCH 28.5 pg (26.0-34.0); MCHC 32.8 g/dL (28.0-37.0); MCV 87.1 fL (80.0-100.0); RBC 4.87 mil/uL (4.50-6.00); RDW 16.3 % (10.5-14.5)
[2017-02-05 05:45] LABS: CALCIUM 9.5 mg/dL (8.5-10.1); CREATININE 1.7 mg/dL (0.7-1.3); POTASSIUM 3.3 mmol/L (3.5-5.1)
[2017-02-06] VITALS (67 sets, daily range): BP systolic 85–126; BP diastolic 58–91
[2017-02-06 05:37] LABS: ABSOLUTE NEUTROPHILS 6.1 thou/uL (1.4-8.2); BASOPHILS 1.3 % (0.0-2.0); EOSINOPHILS 3.1 % (0.0-3.0); HEMATOCRIT 39.7 % (42.0-52.0); HEMOGLOBIN 12.8 gm/dL (14.0-18.0); LYMPHOCYTES 15.3 % (24.0-44.0); MCHC 32.1 g/dL (28.0-37.0); MCV 87.3 fL (80.0-100.0); PLATELET COUNT 173 thou/uL (150-400); POLYS 70.3 % (36.0-66.0); RBC 4.55 mil/uL (4.50-6.00); RDW 16.9 % (10.5-14.5); WBC 8.7 thou/uL (4.0-11.0)
[2017-02-06 05:53] LABS: MANUAL DIFF NO
[2017-02-06 07:37] LABS: CALCIUM 9.4 mg/dL (8.5-10.1); CREATININE 1.5 mg/dL (0.7-1.3); POTASSIUM 3.1 mmol/L (3.5-5.1)
[2017-02-06 14:07] LABS: ABG SAMPLE TYPE ARTERIAL; HCO3 30.2 mmol/L (22.0-26.0); LACTATE 1.51 mmol/L (0.5-2.0); O2(CT) 18.1 mL/dL (15.0-23.0); O2Hb 91.4 % (92.0-98.0); PCO2 46.3 mmHg (35.0-45.0); PO2 66.7 mmHg (80.0-100.0); pH 7.432 (7.360-7.450); sO2 93.6 % (92.0-98.0); tCO2 31.6 mmol/L (24.0-30.0)
[2017-02-06 14:08] LABS: STICK SITE R.RADIAL
[2017-02-06 14:10] LABS: TIDAL VOLUME 450 ml
[2017-02-07] VITALS (46 sets, daily range): BP systolic 83–135; BP diastolic 48–97
[2017-02-07 05:10] LABS: CALCIUM 9.3 mg/dL (8.5-10.1); CREATININE 1.5 mg/dL (0.7-1.3); POTASSIUM 3.5 mmol/L (3.5-5.1)
[2017-02-08] VITALS (23 sets, daily range): BP systolic 96–139; BP diastolic 63–79
[2017-02-08 03:02] LABS: HEMATOCRIT 36.3 % (42.0-52.0); HEMOGLOBIN 11.9 gm/dL (14.0-18.0); MCH 28.8 pg (26.0-34.0); MCHC 32.7 g/dL (28.0-37.0); RBC 4.12 mil/uL (4.50-6.00); RDW 16.4 % (10.5-14.5); WBC 9.3 thou/uL (4.0-11.0)
[2017-02-08 03:26] LABS: CALCIUM 8.9 mg/dL (8.5-10.1); CREATININE 1.3 mg/dL (0.7-1.3); MAGNESIUM 2.1 mg/dL (1.8-2.4); POTASSIUM 3.5 mmol/L (3.5-5.1)
[2017-02-08 04:45] LABS: ABG SAMPLE TYPE ARTERIAL; BE(vivo) 2.8 mmol/L (-2 to +3); HCO3 27.6 mmol/L (22.0-26.0); LACTATE 1.08 mmol/L (0.5-2.0); O2(CT) 16.7 mL/dL (15.0-23.0); O2Hb 90.6 % (92.0-98.0); PCO2 42.9 mmHg (35.0-45.0); PO2 61.3 mmHg (80.0-100.0); STICK SITE L.RADIAL; pH 7.426 (7.360-7.450); tCO2 28.9 mmol/L (24.0-30.0)
[2017-02-08 04:46] LABS: TIDAL VOLUME 500 ml
[2017-02-09] VITALS (16 sets, daily range): BP systolic 97–133; BP diastolic 68–88
[2017-02-09 08:39] LABS: HEMATOCRIT 38.4 % (42.0-52.0); HEMOGLOBIN 12.5 gm/dL (14.0-18.0); MCH 28.5 pg (26.0-34.0); MCHC 32.5 g/dL (28.0-37.0); MCV 87.6 fL (80.0-100.0); PLATELET COUNT 188 thou/uL (150-400); RBC 4.39 mil/uL (4.50-6.00); RDW 16.7 % (10.5-14.5); WBC 10.7 thou/uL (4.0-11.0)
[2017-02-09 08:44] LABS: MANUAL DIFF YES
[2017-02-09 08:49] LABS: CALCIUM 9.3 mg/dL (8.5-10.1); POTASSIUM 3.4 mmol/L (3.5-5.1)
[2017-02-09 09:41] LABS: ABSOLUTE NEUTROPHILS 8.5 thou/uL (1.4-8.2); ANISOCYTOSIS 1+; TOTAL CELL COUNT 100
[2017-02-09] MEDS ORDERED: DUONEB 2.5-0.5 M3 ML INH (12:04)
[2017-02-09] MEDS ORDERED: NYSTATIN 1100000 U/M SWISH&SPIT (12:04)
[2017-02-09] MEDS ORDERED: CARVEDILOL3.125 MG PO (12:05)
[2017-02-09] MEDS ORDERED: COZAAR 25 MG TA25 M1 PO (12:05)
[2017-02-09] MEDS ORDERED: SEROQUEL 25 MG25 M1 PER TUBE (12:06)
[2017-02-09] MEDS ORDERED: MEROPENEM500 MG IV (12:09)
== END 2017-02-09 19:10 | DRG 4 ==
LOC: ER 15:45 → EROBS 17:30 → ICU 17:30 → 4S 18:54 → ICU 20:17
PROVIDERS: Emergency Medicine; Hospitalist; Internal Medicine; Internal Medicine Cardiovascular Disease; Internal Medicine Pulmonary Disease
PROC: 02HV33Z Insertion of Infusion Device into Superior Vena Cava, Percutaneous Approach (ICD-10-PCS; principal; 2017-01-21)
PROC: 0BH17EZ Insertion of Endotracheal Airway into Trachea, Via Natural or Artificial Opening (ICD-10-PCS; principal; 2017-01-21)
PROC: 5A1955Z Respiratory Ventilation, Greater than 96 Consecutive Hours (ICD-10-PCS; principal; 2017-01-21)
PROC: 0JH604Z Insertion of Pacemaker, Single Chamber into Chest Subcutaneous Tissue and Fascia, Open Approach (ICD-10-PCS; 2017-02-03)
PROC: 02HK3JZ Insertion of Pacemaker Lead into Right Ventricle, Percutaneous Approach (ICD-10-PCS; 2017-02-03)
PROC: 0DH63UZ Insertion of Feeding Device into Stomach, Percutaneous Approach (ICD-10-PCS; 2017-02-06)
PROC: 0B110F4 Bypass Trachea to Cutaneous with Tracheostomy Device, Open Approach (ICD-10-PCS; 2017-02-06)
DX: J96.01 Acute respiratory failure with hypoxia (principal); J69.0 Pneumonitis due to inhalation of food and vomit; G93.41 Metabolic encephalopathy; J98.59 Other diseases of mediastinum, not elsewhere classified; I50.33 Acute on chronic diastolic (congestive) heart failure; I13.0 Hypertensive heart and chronic kidney disease with heart failure and stage 1 through stage 4 chronic kidney disease, or unspecified chronic kidney disease; E87.0 Hyperosmolality and hypernatremia; J96.02 Acute respiratory failure with hypercapnia; J44.9 Chronic obstructive pulmonary disease, unspecified; E78.5 Hyperlipidemia, unspecified; N18.3 Chronic kidney disease, stage 3 (moderate); E11.22 Type 2 diabetes mellitus with diabetic chronic kidney disease; N40.0 Benign prostatic hyperplasia without lower urinary tract symptoms; E11.51 Type 2 diabetes mellitus with diabetic peripheral angiopathy without gangrene; G47.33 Obstructive sleep apnea (adult) (pediatric); F41.9 Anxiety disorder, unspecified; I48.91 Unspecified atrial fibrillation; I25.10 Atherosclerotic heart disease of native coronary artery without angina pectoris; I49.5 Sick sinus syndrome; E87.6 Hypokalemia; T44.7X5A Adverse effect of beta-adrenoreceptor antagonists, initial encounter; T50.2X5A Adverse effect of carbonic-anhydrase inhibitors, benzothiadiazides and other diuretics, initial encounter; E66.01 Morbid (severe) obesity due to excess calories; Z95.1 Presence of aortocoronary bypass graft; Z95.5 Presence of coronary angioplasty implant and graft; Z95.820 Peripheral vascular angioplasty status with implants and grafts; Z90.79 Acquired absence of other genital organ(s); Z87.891 Personal history of nicotine dependence; I25.2 Old myocardial infarction; Z68.39 Body mass index [BMI] 39.0-39.9, adult; Y92.89 Other specified places as the place of occurrence of the external cause
CPT/HCPCS: 10078; 50101; 50386; 50403; 50550; 56525; 62110; 62900

== ENCOUNTER → 2017-03-02 | Outpatient (CLI) | payer OTHER ==
[~2017-03-02] MED LIST changes: +CARVEDILOL3.125 MG PO; +COZAAR 25 MG TA25 M1 PO; +DUONEB 2.5-0.5 M3 ML INH; +MEROPENEM500 MG IV; +NYSTATIN 1100000 U/M SWISH&SPIT; +SEROQUEL 25 MG25 M1 PER TUBE
[2017-03-02 08:08] VITALS: BP 134/80
== END ==
LOC: SPEC 07:41
DX: T85.598A Other mechanical complication of other gastrointestinal prosthetic devices, implants and grafts, initial encounter (principal); E11.9 Type 2 diabetes mellitus without complications; J44.9 Chronic obstructive pulmonary disease, unspecified; I50.9 Heart failure, unspecified; E66.9 Obesity, unspecified

== ENCOUNTER 2017-07-12 08:42 | Inpatient (IN) | payer OTHER ==
[~2017-07-12] VITALS: Ht 175.3 cm; Wt 109.9 kg
--- NOTE | ~2017-07-12 | H ---
[facility] [place] [address] HISTORY AND PHYSICAL Name: BIN CLARKE Room #: 442-P ADM IN M.R.#: [id number] Admission: 07/12/17 Attend Phys: Margie Gunn MD Discharge: Date of : 48 Report #: [id number] THIS REPORT FOR: //name// CC: VICK Gunn DATE OF SERVICE: 07/12/2017 CHIEF COMPLAINT: Trach malfunction. HISTORY OF PRESENT ILLNESS: The patient is a 67-year-old gentleman transferred to the ER from [facility] for evaluation of a tracheostomy displacement. He has a long-standing history of respiratory failure due to COPD and presumed underlying sleep apnea, for which he had been on the ventilator for quite some time. He had a tracheostomy tube placed in December of this year and subsequently, he has been weaned from the ventilator. At the chcf level, he was using a speaking valve during the day and I believe, just trach shield at night. Apparently, yesterday, the trach had fallen out at some time through the night and he was uncertain when. He was sent to the Emergency Room. So far, he has been evaluated by ENT and they were unable to replace the tube due to the stoma had already essentially closed. At this point, he is being monitored from a respiratory standpoint. PAST MEDICAL HISTORY: Coronary artery disease, COPD, diabetes type 2 and CHF with ejection fraction of 45%. He has had multiple angioplasties and stents, peripheral artery disease to his leg and cardiac, BPH and obstructive sleep apnea, he should be wearing CPAP. [facility], but not sure where it is . He has had cardiac bypass. PAST SURGICAL HISTORY: As above. FAMILY HISTORY: Noncontributory. SOCIAL HISTORY: He has been at [facility] for quite some time. Prior tobacco history. ALLERGIES: None. MEDICATIONS: Glyburide, DuoNeb, Coreg and Cozaar. REVIEW OF SYSTEMS: He denies headache, chest pain, shortness of breath, abdominal pain, nausea, vomiting, diarrhea, constipation, dysuria or syncope. PHYSICAL EXAMINATION: VITAL SIGNS: Temperature 36.7, pulse 80, respirations 20 and blood pressure 133/73. [facility] [address] [place] [address] HISTORY AND PHYSICAL Name: BIN CLARKE Room #: 442[facility] IN M.R.#: [id number] Admission: 07/12/17 Attend Phys: Margie Gunn MD Discharge: Date of : 48 Report #: [id number] GENERAL: He is awake and alert, in no distress. HEAD AND NECK: Unremarkable. The old trach stoma is nearly closed. LUNGS: Clear. HEART: Regular. ABDOMEN: Obese, soft. Normoactive bowel sounds. EXTREMITIES: No edema. NEUROLOGIC: Cranial nerves intact. Speech is fluent. Moves all extremities. Global strength about 4/5 throughout. ASSESSMENT: 1. Chronic obstructive pulmonary disease. 2. Obstructive sleep apnea. 3. Tracheostomy decannulation. 4. Chronic anticoagulation. 5. Diabetes type 2. 6. Coronary artery disease. PLAN: I will have the pulmonary service follow him as well and we will try to make a determination on his respiratory pattern in accordance to any further CPAP needs. <ELECTRONICALLY SIGNED> By: Pee Whipple MD 07/14/17 [id number] Pee Whipple MD /nt
--- NOTE | ~2017-07-12 | HC ---
[facility] [place] [address] [address] CONSULTATION Name: BIN CLARKE Room #: 442-P ADM IN M.R.#: [id number] Admission: 07/12/17 Attend Phys: Margie Gunn MD Discharge: Date of : 48 Report #: [id number] THIS REPORT FOR: //name// CC: VICK Gunn MD DATE OF SERVICE: 07/12/2017 DATE OF SERVICE: 07/12/2017 SURGEON: Demetris Lyman MD REASON FOR CONSULTATION: Evaluation of tracheal stoma. HISTORY OF PRESENT ILLNESS: The patient is a 67-year-old gentleman admitted to the Emergency Department this afternoon on transfer from his tracheotomy hospital after dislodgement of the tracheotomy tube. There is some confusion of when this was dislodged. This was placed by Dr. Robb Lux on 01/21/2017 on the General Surgery Service. This was done with his partner, Dr. Rojas. The patient presented this morning in no distress, but requested evaluation from his nursing staff at his tracheotomy hospital. The patient states that the tracheal ties have been loose for days, if not more than a week. It is clear that this tracheotomy tube has been dislodged for multiple days as the tracheal stoma is well on its way to healing. An attempt was made by the Emergency Room physician for replacement without success secondary to granulation tissue bleeding and lack of a patent stoma. The tracheotomy tube was placed it looks like for respiratory failure and difficulty weaning from the ventilator. I cannot see that any attempt has been made to wean the patient from this tracheotomy tube in the interim. The patient is in no acute distress, has been comfortable for many days with the loose tracheotomy ties and probable displacement. PAST MEDICAL HISTORY: Significant for congestive heart failure, acute kidney injury on a background of chronic kidney disease, COPD, morbid obesity, probable obstructive apnea, hypertension, hyperlipidemia, coronary artery disease, status post coronary artery bypass graft x 2 with stent placement in 2002, bilateral carotid endarterectomy, diabetes mellitus, diastolic dysfunction, bilateral leg stents, history of transurethral resection of the prostate, angina, anemia, chronic kidney disease stage 3, benign prostate hypertrophy, peripheral vascular disease, former smoker, anxiety, adrenal cortical adenoma, and NSTEMI. REVIEW OF SYSTEMS: The patient is seen in his hospital room, awaiting his lunch. He is alert and oriented x 3. He is in no acute distress. He has [facility] [address] [place] [address] CONSULTATION Name: BIN CLARKE Room #: 442-P [facility] IN .R.#: [id number] Admission: 07/12/17 Attend Phys: Margie Gunn MD Discharge: Date of : 48 Report #: [id number] really no complaints. A 12-point review of systems is otherwise negative. CURRENT MEDICINES: In his MAR. ALLERGIES: None. SOCIAL HISTORY: The patient is currently living at [facility], [facility]. He is an ex-smoker, quit about 9 or 10 years ago. Denies any illicit alcohol or drug use. He ambulates with a cane and is retired. FAMILY HISTORY: Significant for heart disease in his father. He from an OR at age 61. Mother with hypertension, peripheral vascular disease, abdominal aortic aneurysm. PHYSICAL EXAMINATION: GENERAL: A well-developed, obese 67-year-old gentleman seen in his hospital room. VITAL SIGNS: Show a temperature of 98.1, blood pressure 117/71, pulse of 80. He is 94% on room air. HEENT: There is no tracheotomy tube present. He is normocephalic. Pupils equal and round, reactive to light. Nasal exam shows a deviated septum to the left, nonobstructing. Oral cavity edentulous upper, multiple missing teeth lower, no oral cavity lesions. The patient has 1+ tonsils. No significant oropharyngeal obstruction. NECK: Shows a midline trachea. No significant adenopathy or other masses, carotid endarterectomy, well-healed scars. The patient has an occluded tracheal stoma with granulation tissue. Clearly, this tracheotomy tube has been out for several days. NEUROLOGIC: Cranial nerves 2-12 were intact. Motor and sensory and cerebellar exams are normal. LABORATORY DATA: CBC shows a white count of 8600 with a hemoglobin of 10.7. Serum electrolytes are normal with an elevated BUN of 21 and a glucose of 137. PT, PTT show an elevated protime of 31 with an INR of 3.1. PTT is also elevated at 41.5. Chest x-ray was done showing no tracheotomy tube in place. There is cardiomegaly, no consolidation, no infiltrate, no pleural effusion, no pneumothorax. CT of neck was also done, which I personally reviewed. This shows no evidence of any tracheal stoma connecting the skin to the trachea. There are some gas bubbles anteriorly from the recent probing. Trachea is clear. There is no granulation or obstruction of the trachea. Incidental note is made of some mucoperiosteal thickening with a small mucous retention cyst, nonobstructing, in left maxillary sinus, which appears chronic. ASSESSMENT: 1. Admission through the Emergency Department for dislodged tracheotomy tube. I suspect this tube has been out for many days if not most of the week. The [address] [address] CONSULTATION Name: BIN CLARKE Room #: 442-[facility] IN ..#: [id number] Admission: 07/12/17 Attend Phys: Margie Gunn MD Discharge: Date of : 48 Report #: [id number] patient has been completely asymptomatic for any respiratory failure during this time. The question really becomes whether this needs to be replaced at this point as the patient has effectively weaned himself from his tracheotomy tube. I will try to discuss this with Dr. Rueda to come up with a plan. The options at this point would be to leave the tube out and observe versus replacement of the tube. Unfortunately, this would need to be done through the Emergency Room either by his surgeon, Dr. Zamudio or myself or someone in my group. 2. Tracheotomy tube placement for respiratory failure and inability to wean from ventilator. The patient has effectively weaned himself. 3. Multiple comorbid conditions. 4. Morbid obesity. 5. Obstructive apnea. PLAN: 1. Agree with admission and observation overnight, especially for his obstructive apnea for any evidence of hypoxemia. May consider a in-hospital sleep study to further evaluate. 2. I will try to discuss with Dr. Rueda. At this point, I would not recommend replacement of the tracheotomy tube as the patient has had an effective wean from this. If this is requested by his medical team, this would need to be done through the operating room and the patient would need to be off anticoagulation. I have reviewed the above with the patient, he is comfortable with this and understands that the plan may be reevaluated based on his progress in the hospital and any evidence of hypoxemia. Appreciate the consultation and ability to share in his care. I will not plan to follow with you. If there is concern that he may require a revision tracheotomy, please reconsult. CC: Dr. Vick Cruz. <ELECTRONICALLY SIGNED> By: Demetris Lyman MD 07/15/17 [id number] Demetris Lyman MD /nt
--- NOTE | ~2017-07-12 | HC ---
[facility] [place] [address] [place] [address] CONSULTATION Name: BIN CLARKE Room #: 442-P ADM IN M.R.#: [id number] Admission: 07/12/17 Attend Phys: Margie Gunn MD Discharge: Date of : 48 Report #: [id number] THIS REPORT FOR: //name// CC: VICK Gunn REASON FOR CONSULTATION: Obstructive sleep apnea. IMPRESSION: 1. History of obstructive sleep apnea. Question if he currently has this. 2. Status post tracheostomy decannulation. 3. History of bradycardia with pacemaker placement and diastolic CHF. 4. Anemia, normocytic. 5. History of chronic obstructive pulmonary disease. 6. Diabetes mellitus. 7. CABG. HISTORY OF PRESENT ILLNESS: Very pleasant 67-year-old male, admitted to [facility] on 01/21 with acute respiratory failure. Was not able to be extubated. Had tracheostomy done. Has been at [facility], discharged from here 02/09. He has subsequently been taken off of ventilator and his trach came out during the night, on the . He relates he has lost 40 pounds. He feels okay and last night he slept in hospital without trach and did well. PAST MEDICAL HISTORY: Currently on prednisone 5 mg, losartan 25, finasteride 5, aspirin, glyburide, Protonix, Flomax, Paxil, Coumadin, and albuterol. PAST SURGICAL HISTORY: Include CABG, coronary stents, carotid endarterectomy, peripheral vascular disease and stenting. Aortofemoral bypass graft in 1988. SOCIAL HISTORY: Quit smoking in 2004. FAMILY HISTORY: Noncontributory. REVIEW OF SYSTEMS: History of COPD, CKD, CHF, diastolic dysfunction. He is watching his fluids closely. Positive shortness breath and hoarseness. PHYSICAL EXAMINATION: VITAL SIGNS: Temperature 98, pulse 80, respirations 20, BP 133/73. EYES: Negative icterus. NECK: Negative JVD. Trach scar noted. LUNGS: Decreased. No wheeze. HEART: Regular. Sternal scar noted. ABDOMEN: Bowel sounds present. EXTREMITIES: Showed no clubbing, cyanosis or edema. DIAGNOSTIC DATA: White count 8.6, hemoglobin 10.7 and platelets 192. No bands. [facility] [address] [place] [address] CONSULTATION Name: BIN CLARKE Room #: 2 ADM IN M.R.#: [id number] Admission: 07/12/17 Attend Phys: Margie Gunn MD Discharge: Date of : 48 Report #: [id number] BUN 21, creatinine 1, glucose 137. INR 3.1. Chest x-ray showed no infiltrate. PLAN: We will follow closely with you. We will do a nocturnal desaturation study tonight. He will have his son bring in his CPAP, but we will not use tonight. We will monitor closely. Continue on O2 for now. By: 1300 1538 Go Rocha MD /vera
[2017-07-12 08:43] VITALS: BP 134/80
[2017-07-12] MEDS ORDERED: LASIX 40 MG TAB40 M2 PO (08:52)
[2017-07-12] MEDS ORDERED: COUMADIN7.5 MG PO (08:53)
[2017-07-12] MEDS ORDERED: PREDNISONE 5 MG5 M1 PO (08:54)
[2017-07-12] MEDS ORDERED: PREVACID30 MG PO (08:55)
[2017-07-12] MEDS ORDERED: MIRALAX17 GM PO (08:57)
[2017-07-12 10:20] LABS: ABSOLUTE NEUTROPHILS 6.5 thou/uL (1.4-8.2); BASOPHILS 0.7 % (0.0-2.0); HEMATOCRIT 32.6 % (42.0-52.0); HEMOGLOBIN 10.7 gm/dL (14.0-18.0); LYMPHOCYTES 10.8 % (24.0-44.0); MCH 28.1 pg (26.0-34.0); MCV 85.3 fL (80.0-100.0); MONOCYTES 11.2 % (1.0-8.0); PLATELET COUNT 192 thou/uL (150-400); POLYS 75.3 % (36.0-66.0); RBC 3.82 mil/uL (4.50-6.00); RDW 15.4 % (10.5-14.5); WBC 8.6 thou/uL (4.0-11.0)
[2017-07-12 10:22] LABS: MANUAL DIFF NO
[2017-07-12 10:28] LABS: CALCIUM 9.2 mg/dL (8.5-10.1); POTASSIUM 3.7 mmol/L (3.5-5.1)
[2017-07-12 10:35] LABS: APTT 41.5 Seconds (24.5-32.8); INR 3.1
[2017-07-12 11:47] VITALS: BP 121/84
[2017-07-12 11:57] VITALS: BP 117/71
[2017-07-12 12:20] VITALS: BP 148/97
[2017-07-12 16:15] VITALS: BP 157/87
[2017-07-12 20:44] VITALS: BP 137/72
[2017-07-13 04:27] VITALS: BP 133/73
[2017-07-13 05:53] LABS: INR 3.3; PROTIME 32.8 Seconds (9.3-11.4)
[2017-07-13 10:00] VITALS: BP 126/71
[2017-07-13 15:30] LABS: ABG SAMPLE TYPE ARTERIAL; BE(vivo) 8.1 mmol/L (-2 to +3); HCO3 33.6 mmol/L (22.0-26.0); LACTATE 1.69 mmol/L (0.5-2.0); O2(CT) 14.6 mL/dL (15.0-23.0); O2Hb 86.4 % (92.0-98.0); PCO2 50.9 mmHg (35.0-45.0); pH 7.437 (7.360-7.450); sO2 87.6 % (92.0-98.0); tCO2 35.1 mmol/L (24.0-30.0)
[2017-07-13 15:31] LABS: PO2 52.2 mmHg (80.0-100.0)
[2017-07-13 15:32] LABS: STICK SITE R.RADIAL
[2017-07-13 15:45] VITALS: BP 148/90
[2017-07-13 19:35] VITALS: BP 139/87
[2017-07-14 04:17] VITALS: BP 159/100
[2017-07-14 06:29] LABS: HEMATOCRIT 35.3 % (42.0-52.0); HEMOGLOBIN 11.3 gm/dL (14.0-18.0); MCH 27.4 pg (26.0-34.0); MCHC 31.9 g/dL (28.0-37.0); MCV 85.7 fL (80.0-100.0); RBC 4.11 mil/uL (4.50-6.00); RDW 16.1 % (10.5-14.5); WBC 9.7 thou/uL (4.0-11.0)
[2017-07-14 06:44] LABS: INR 3.6; PROTIME 35.7 Seconds (9.3-11.4)
[2017-07-14 06:53] LABS: CALCIUM 9.4 mg/dL (8.5-10.1); CREATININE 1.2 mg/dL (0.7-1.3); POTASSIUM 3.4 mmol/L (3.5-5.1)
[2017-07-14 08:04] VITALS: BP 153/84
[2017-07-14 16:00] VITALS: BP 148/86
[2017-07-14 19:12] VITALS: BP 137/92
[2017-07-15 06:22] LABS: INR 3.1
[2017-07-15 06:26] LABS: CALCIUM 9.5 mg/dL (8.5-10.1); CREATININE 1.3 mg/dL (0.7-1.3); POTASSIUM 3.6 mmol/L (3.5-5.1)
[2017-07-15 08:50] VITALS: BP 126/80
[2017-07-15] MEDS ORDERED: COUMADIN 4 MG TA4 M1 PO (12:05)
[2017-07-15] MEDS ORDERED: K-DUR 20 MEQ T20 MEQ PO (12:06)
[2017-07-15 15:26] VITALS: BP 140/79
== END 2017-07-15 16:30 | DRG 206 ==
LOC: ER 08:42 → EROBS 10:15 → 4S 10:15
PROVIDERS: Emergency Medicine; Internal Medicine; Internal Medicine Geriatric Medicine; Internal Medicine Pulmonary Disease
DX: J95.03 Malfunction of tracheostomy stoma (principal); I13.0 Hypertensive heart and chronic kidney disease with heart failure and stage 1 through stage 4 chronic kidney disease, or unspecified chronic kidney disease; I50.30 Unspecified diastolic (congestive) heart failure; J44.1 Chronic obstructive pulmonary disease with (acute) exacerbation; M35.1 Other overlap syndromes; E11.22 Type 2 diabetes mellitus with diabetic chronic kidney disease; E78.5 Hyperlipidemia, unspecified; N18.3 Chronic kidney disease, stage 3 (moderate); N40.0 Benign prostatic hyperplasia without lower urinary tract symptoms; E11.51 Type 2 diabetes mellitus with diabetic peripheral angiopathy without gangrene; G47.33 Obstructive sleep apnea (adult) (pediatric); F41.9 Anxiety disorder, unspecified; E66.01 Morbid (severe) obesity due to excess calories; I25.10 Atherosclerotic heart disease of native coronary artery without angina pectoris; D64.9 Anemia, unspecified; Z79.01 Long term (current) use of anticoagulants; Z79.82 Long term (current) use of aspirin; Z95.1 Presence of aortocoronary bypass graft; Z95.5 Presence of coronary angioplasty implant and graft; I25.2 Old myocardial infarction; Z87.891 Personal history of nicotine dependence; Z68.35 Body mass index [BMI] 35.0-35.9, adult; Z82.49 Family history of ischemic heart disease and other diseases of the circulatory system; Z79.899 Other long term (current) drug therapy
CPT/HCPCS: 10102